=== PATIENT | male | born 1945 | race Caucasian/White ===

== ENCOUNTER → 2016-09-19 | Outpatient (CLI) | payer MEDICARE ==
[~2016-09-19] VITALS: Ht 177.8 cm; Wt 114.8 kg
[~2016-09-19] MED LIST: ASPI1TAB PO; ATOR40TA PO; INSULANT SC; LISI10TA4 PO; METF500T PO; METO-207 PO; NS 1,000 ML IV SCH; PLAV75TA38 PO; PROPOFOL 200 MG/20 ML VIAL As Ordered ONE
--- NOTE | 2016-09-19 11:36 | ROOR ---
Patient Name: Kendrick Ortega Procedure Date: 09/19/2016 10:54 AM Date of : 1945 Age: 71 Room: [facility] Gender: Male Note Status: Finalized Procedure: Colonoscopy to Cecum + Hot/Cold Snare Polypectomy + Hemoclips. Indications: Screening for colorectal malignant neoplasm Providers: Manjeet Martinez MD Referring MD: Issac Rios MD Requesting Provider: Medicines: Monitored Anesthesia Care Complications: No immediate complications. Procedure: Pre-Anesthesia Assessment: - The heart rate, respiratory rate, oxygen saturations, blood pressure, adequacy of pulmonary ventilation, and response to care were monitored throughout the procedure. The Colonoscope was introduced through the anus and advanced to the cecum, identified by appendiceal orifice and ileocecal valve. The colonoscopy was performed without difficulty. The patient tolerated the procedure well. The quality of the bowel preparation was excellent. Findings: The perianal and digital rectal examinations were normal. Non-bleeding internal hemorrhoids were found during retroflexion. The hemorrhoids were small and Grade I (internal hemorrhoids that do not prolapse). Scattered small-mouthed diverticula were found in the recto-sigmoid colon, in the sigmoid colon and in the descending colon. A medium polyp was found at 30 cm proximal to the anus. The polyp was sessile. The polyp was removed with a cold snare. Resection and retrieval were complete. To prevent bleeding after the polypectomy, one hemostatic clip was successfully placed (MR conditional). There was no bleeding at the end of the procedure. A medium polyp was found at 10 cm proximal to the anus. The polyp was sessile. The polyp was removed with a hot snare. Resection and retrieval were complete. To prevent bleeding after the polypectomy, one hemostatic clip was successfully placed (MR conditional). There was no bleeding at the end of the procedure. Two sessile polyps were found in the rectum. The polyps were large in size. These polyps were removed with a hot snare. Resection and retrieval were complete. To prevent bleeding after the polypectomy, three hemostatic clips were successfully placed (MR conditional). There was no bleeding at the end of the procedure. The exam was otherwise without abnormality on direct and retroflexion views. Impression: - Non-bleeding internal hemorrhoids. - Diverticulosis in the recto-sigmoid colon, in the sigmoid colon and in the descending colon. - One medium polyp at 30 cm proximal to the anus, removed with a cold snare. Resected and retrieved. Clip (MR conditional) was placed. - One medium polyp at 10 cm proximal to the anus, removed with a hot snare. Resected and retrieved. Clip (MR conditional) was placed. - Two large polyps in the rectum, removed with a hot snare. Resected and retrieved. Clips (MR conditional) were placed. - The examination was otherwise normal on direct and retroflexion views. - The exam was otherwise normal to the cecum. Recommendation: - Patient has a contact number available for emergencies. The signs and symptoms of potential delayed complications were discussed with the patient. Return to normal activities tomorrow. Written discharge instructions were provided to the patient. - High fiber diet. - Discharge patient to home. - Continue present medications. - Await pathology results. - Telephone GI clinic for pathology results in 1 week. - Repeat colonoscopy date to be determined after pending pathology results are reviewed for surveillance. - Return to referring physician. - The findings and recommendations were discussed with the patient's family. - Resume Plavix (clopidogrel) at prior dose today. Manjeet Martinez MD Manjeet Martinez MD 09/19/2016 11:35:58 AM This report has been signed electronically. Number of Addenda: 0 Note Initiated On: 09/19/2016 10:54 AM Estimated Blood Loss: Estimated blood loss: none.
[2016-09-19 12:14] VITALS: BP 162/99
== END ==
LOC: M OPP 09:16
PROVIDERS: ATTEND Internal Medicine Gastroenterology
DX: Z12.11 Encounter for screening for malignant neoplasm of colon (principal); K64.0 First degree hemorrhoids; K57.30 Diverticulosis of large intestine without perforation or abscess without bleeding; D12.6 Benign neoplasm of colon, unspecified; K62.1 Rectal polyp; Z79.899 Other long term (current) drug therapy

== ENCOUNTER → 2016-11-22 | Outpatient (REF) | payer MEDICARE ==
[~2016-11-22] MED LIST changes: -NS 1,000 ML IV SCH; -PROPOFOL 200 MG/20 ML VIAL As Ordered ONE
[2016-11-22 10:45] LABS: MEAN CORPUSCULAR HEMOGLOBIN 29.5 pg (27.0-33.0); MEAN CORPUSCULAR HGB CONC 33.7 g/dl (32.0-36.5); MEAN CORPUSCULAR VOLUME 87.6 fl (80.0-96.0); RED CELL DISTRIBUTION WIDTH 13.8 % (11.5-14.5); WHITE BLOOD COUNT 6.9 K/mm3 (4.0-10.0)
[2016-11-22 10:55] LABS: ALBUMIN 3.9 GM/DL (3.2-5.2); ALBUMIN/GLOBULIN RATIO 1.39 (1.00-1.93); BILIRUBIN,TOTAL 0.3 MG/DL (0.2-1.0); CALCIUM LEVEL 8.8 MG/DL (8.8-10.2); CREATININE FOR GFR 1.46 MG/DL (0.70-1.30); GLOMERULAR FILTRATION RATE 50.8 (>42); POTASSIUM SERUM 4.6 MEQ/L (3.5-5.1); TOTAL PROTEIN 6.7 GM/DL (6.4-8.2)
== END ==
LOC: M SFHCPLAZ 08:01
PROVIDERS: ATTEND Family Medicine
DX: N18.2 Chronic kidney disease, stage 2 (mild) (principal); E78.2 Mixed hyperlipidemia; E13.9 Other specified diabetes mellitus without complications; Z12.5 Encounter for screening for malignant neoplasm of prostate
CPT/HCPCS: 36415; 80053; 80061; 83036; 85027; G0103

== ENCOUNTER → 2017-05-22 | Outpatient (REF) | payer MEDICARE ==
[~2017-05-22] MED LIST changes: -ATOR40TA PO; +ATOR40TA75 PO; -METF500T PO; +METF500T13 PO; -METO-207 PO; +METO1TAB7 PO; +PLAV1TAB2 PO; -PLAV75TA38 PO
[2017-05-22 13:40] LABS: CALCIUM LEVEL 9.3 MG/DL (8.8-10.2); CREATININE FOR GFR 1.68 MG/DL (0.70-1.30); GLOMERULAR FILTRATION RATE 43.2 (>42); POTASSIUM SERUM 4.4 MEQ/L (3.5-5.1)
== END ==
LOC: M SFHCPLAZ 09:15
PROVIDERS: ATTEND Family Medicine
DX: Z00.00 Encounter for general adult medical examination without abnormal findings (principal); Z12.5 Encounter for screening for malignant neoplasm of prostate; E13.9 Other specified diabetes mellitus without complications

== ENCOUNTER → 2017-11-27 | Outpatient (REF) | payer MEDICARE ==
[2017-11-27 12:37] LABS: HEMATOCRIT 42.1 % (42.0-52.0); HEMOGLOBIN 13.6 g/dl (14.0-18.0); MEAN CORPUSCULAR HEMOGLOBIN 28.5 pg (27.0-33.0); MEAN CORPUSCULAR HGB CONC 32.3 g/dl (32.0-36.5); MEAN CORPUSCULAR VOLUME 88.3 fl (80.0-96.0); PLATELET COUNT, AUTOMATED 236 10^3/uL (150-450); RED BLOOD COUNT 4.77 10^6/uL (4.30-6.10); RED CELL DISTRIBUTION WIDTH 14.7 % (11.5-14.5); WHITE BLOOD COUNT 9.1 10^3/uL (4.0-10.0)
[2017-11-27 12:47] LABS: ALBUMIN/GLOBULIN RATIO 1.38 (1.00-1.93); ALKALINE PHOSPHATASE 98 U/L (45-117); ALT/SGPT 31 U/L (12-78); ANION GAP 5 MEQ/L (8-16); AST/SGOT 20 U/L (7-37); BILIRUBIN,TOTAL 0.4 MG/DL (0.2-1.0); BLOOD UREA NITROGEN 23 MG/DL (7-18); CALCIUM LEVEL 8.8 MG/DL (8.8-10.2); CARBON DIOXIDE LEVEL 27 MEQ/L (21-32); CHLORIDE LEVEL 110 MEQ/L (98-107); CHOLESTEROL LEVEL 109 MG/DL (<200); CHOLESTEROL RISK RATIO 3.114 (<5); GLOMERULAR FILTRATION RATE 53.2 (>42); GLUCOSE, FASTING 112 MG/DL (70-100); HDL CHOLESTEROL 35 MG/DL (>40); NON-HDL-C 74 MG/DL; POTASSIUM SERUM 4.6 MEQ/L (3.5-5.1); SODIUM LEVEL 142 MEQ/L (136-145); TOTAL PROTEIN 6.9 GM/DL (6.4-8.2); TRIGLYCERIDES LEVEL 417 MG/DL (<150)
[2017-11-27 12:53] LABS: TOTAL 25(OH) VITAMIN D 28.7 NG/ML (30.0-100.0)
== END ==
LOC: M SFHCADAM 07:39
DX: I25.10 Atherosclerotic heart disease of native coronary artery without angina pectoris (principal); E78.2 Mixed hyperlipidemia; N18.3 Chronic kidney disease, stage 3 (moderate)
CPT/HCPCS: 80053

== ENCOUNTER 2018-05-03 08:02 | Day surgery (SDC) | payer MEDICARE ==
[2018-05-03 08:52] LABS: BEDSIDE GLUCOSE 133 MG/DL (83-110)
[2018-05-03] MEDS: PHENYLEPHRINE 2.5% OPHTH SOL 2ML OD (08:54)
[2018-05-03] MEDS: PROPARACAINE 0.5% OPHTH SOL 15ML OD (08:54)
[2018-05-03] MEDS: TROPICAMIDE 1% OPHTH SOLN 2ML OD (08:54)
[2018-05-03] MEDS: OFLOXACIN 0.3 % (OCUFLOX) OPTH SOL 5ML OD (08:54)
[2018-05-03] MEDS ORDERED: fentaNYL 100 MCG/2 ML INJECTION (J3010) As Ordered (09:01)
[2018-05-03] MEDS ORDERED: MIDAZOLAM INJ 2 MG/2 ML VIAL (J2250) As Ordered (09:02)
[2018-05-03] MEDS ORDERED: ONDANSETRON 4MG/2ML VIAL (J2405) As Ordered (09:02)
[2018-05-03] MEDS: BALANCED SALT IRRIGATION SOLUTION 500ML BAG (FOR OR EYE MACHINE) As Ordered (10:22)
[2018-05-03] MEDS: DUOVISC (0.50ML VISCOAT/0.55ML PROVISC) OPHTH KIT As Ordered (10:22)
[2018-05-03] MEDS: LIDOCAINE 0.75%/EPINEPHRINE 0.025% IN BSS 1ML SYR INTRACAMERAL (OR ONLY) As Ordered (10:22)
[2018-05-03] MEDS: CEFUROXIME 1MG/0.1ML INTRACAMERAL INJ As Ordered (10:22)
[2018-05-03] MEDS: POVIDONE-IODINE 5% OPHTH PREP SOL 30ML As Ordered (10:22)
== END 2018-05-03 11:30 | disposition home or self-care (01) ==
LOC: M SDC 08:02
DX: H25.11 Age-related nuclear cataract, right eye (principal); I25.10 Atherosclerotic heart disease of native coronary artery without angina pectoris; Z86.73 Personal history of transient ischemic attack (TIA), and cerebral infarction without residual deficits; E78.5 Hyperlipidemia, unspecified; Z79.82 Long term (current) use of aspirin; I25.2 Old myocardial infarction; I10 Essential (primary) hypertension; E11.9 Type 2 diabetes mellitus without complications; Z79.4 Long term (current) use of insulin; Z79.02 Long term (current) use of antithrombotics/antiplatelets; Z79.899 Other long term (current) drug therapy
CPT/HCPCS: 66984

== ENCOUNTER 2018-05-10 08:18 | Day surgery (SDC) | payer MEDICARE ==
[2018-05-10] MEDS: OFLOXACIN 0.3 % (OCUFLOX) OPTH SOL 5ML OS (09:30)
[2018-05-10] MEDS: TROPICAMIDE 1% OPHTH SOLN 2ML OS (09:31)
[2018-05-10] MEDS: PROPARACAINE 0.5% OPHTH SOL 15ML OS (09:31)
[2018-05-10] MEDS: PHENYLEPHRINE 2.5% OPHTH SOL 2ML OS (09:31)
[2018-05-10 09:34] LABS: BEDSIDE GLUCOSE 99 MG/DL (83-110)
[2018-05-10] MEDS: POVIDONE-IODINE 5% OPHTH PREP SOL 30ML As Ordered (11:26)
[2018-05-10] MEDS: DUOVISC (0.50ML VISCOAT/0.55ML PROVISC) OPHTH KIT As Ordered (11:31)
[2018-05-10] MEDS: BALANCED SALT IRRIGATION SOLUTION 500ML BAG (FOR OR EYE MACHINE) As Ordered (11:31)
[2018-05-10] MEDS: CEFUROXIME 1MG/0.1ML INTRACAMERAL INJ As Ordered (11:32)
[2018-05-10] MEDS: LIDOCAINE 0.75%/EPINEPHRINE 0.025% IN BSS 1ML SYR INTRACAMERAL (OR ONLY) As Ordered (11:32)
[2018-05-10] MEDS ORDERED: fentaNYL 100 MCG/2 ML INJECTION (J3010) As Ordered (11:38)
[2018-05-10] MEDS ORDERED: MIDAZOLAM INJ 2 MG/2 ML VIAL (J2250) As Ordered (11:39)
== END 2018-05-10 12:20 | disposition home or self-care (01) ==
LOC: M SDC 12:20
DX: H25.12 Age-related nuclear cataract, left eye (principal); I10 Essential (primary) hypertension; E78.5 Hyperlipidemia, unspecified; E11.9 Type 2 diabetes mellitus without complications; I25.10 Atherosclerotic heart disease of native coronary artery without angina pectoris; I25.2 Old myocardial infarction; Z95.1 Presence of aortocoronary bypass graft; Z98.61 Coronary angioplasty status; Z79.82 Long term (current) use of aspirin; Z79.4 Long term (current) use of insulin; Z79.899 Other long term (current) drug therapy; Z79.02 Long term (current) use of antithrombotics/antiplatelets
CPT/HCPCS: 66984

== ENCOUNTER → 2018-05-28 | Outpatient (REF) | payer MEDICARE ==
[2018-05-28 13:04] LABS: HEMATOCRIT 40.3 % (42.0-52.0); HEMOGLOBIN 13.3 g/dl (13.5-17.5); MEAN CORPUSCULAR HEMOGLOBIN 29.7 pg (27.0-33.0); PLATELET COUNT, AUTOMATED 231 10^3/uL (150-450); RED BLOOD COUNT 4.48 10^6/uL (4.30-6.10); RED CELL DISTRIBUTION WIDTH 13.2 % (11.5-14.5); WHITE BLOOD COUNT 6.7 10^3/uL (4.0-10.0)
[2018-05-28 13:35] LABS: ALBUMIN 3.9 GM/DL (3.2-5.2); ALKALINE PHOSPHATASE 72 U/L (45-117); ALT/SGPT 29 U/L (12-78); ANION GAP 7 MEQ/L (8-16); AST/SGOT 20 U/L (7-37); BILIRUBIN,TOTAL 0.4 MG/DL (0.2-1.0); BLOOD UREA NITROGEN 20 MG/DL (7-18); CALCIUM LEVEL 9.1 MG/DL (8.8-10.2); CARBON DIOXIDE LEVEL 27 MEQ/L (21-32); CHLORIDE LEVEL 109 MEQ/L (98-107); CHOLESTEROL LEVEL 110 MG/DL (<200); CREATININE FOR GFR 1.43 MG/DL (0.70-1.30); GLOMERULAR FILTRATION RATE 51.9 (>42); GLUCOSE, FASTING 108 MG/DL (70-100); HDL CHOLESTEROL 40 MG/DL (>40); LDL CHOLESTEROL 28 MG/DL (<100); NON-HDL-C 70 MG/DL; POTASSIUM SERUM 4.6 MEQ/L (3.5-5.1); SODIUM LEVEL 143 MEQ/L (136-145); TOTAL PROTEIN 6.9 GM/DL (6.4-8.2); TRIGLYCERIDES LEVEL 209 MG/DL (<150)
[2018-05-28 14:05] LABS: MAU/CREAT RATIO 18.7 MCG/MG (0.0-30.0)
[2018-05-28 14:31] LABS: ESTIMATED AVERAGE GLUCOSE 166 MG/DL (60-110); HEMOGLOBIN A1c 7.4 %
== END ==
LOC: M SFHCADAM 08:07
DX: N18.3 Chronic kidney disease, stage 3 (moderate) (principal); E13.9 Other specified diabetes mellitus without complications; E78.2 Mixed hyperlipidemia
CPT/HCPCS: 80053

== ENCOUNTER → 2018-11-28 | Outpatient (REF) | payer MEDICARE ==
[~2018-11-28] MED LIST changes: +VITA200016 PO
[2018-11-28 13:01] LABS: CALCIUM LEVEL 9.1 MG/DL (8.8-10.2); CREATININE FOR GFR 1.96 MG/DL (0.70-1.30); POTASSIUM SERUM 4.8 MEQ/L (3.5-5.1)
[2018-11-28 13:27] LABS: HEMOGLOBIN A1c 7.3 %
== END ==
LOC: M SFHCADAM 08:42
PROVIDERS: ATTEND Family Medicine
DX: E13.9 Other specified diabetes mellitus without complications (principal)

== ENCOUNTER → 2019-06-24 | Outpatient (REF) | payer MEDICARE ==
[~2019-06-24] MED LIST changes: -ASPI1TAB PO; +ASPI81TA26 PO
[2019-06-24 13:19] LABS: HEMATOCRIT 41.3 % (42.0-52.0); HEMOGLOBIN 13.4 g/dl (13.5-17.5); MEAN CORPUSCULAR HEMOGLOBIN 29.5 pg (27.0-33.0); MEAN CORPUSCULAR HGB CONC 32.4 g/dl (32.0-36.5); PLATELET COUNT, AUTOMATED 255 10^3/uL (150-450); RED BLOOD COUNT 4.54 10^6/uL (4.30-6.10); WHITE BLOOD COUNT 8.8 10^3/uL (4.0-10.0)
[2019-06-24 13:29] LABS: ALBUMIN 4.1 GM/DL (3.2-5.2); BILIRUBIN,TOTAL 0.5 MG/DL (0.2-1.0); CALCIUM LEVEL 9.4 MG/DL (8.8-10.2); CHOLESTEROL RISK RATIO 2.704 (<5); CREATININE FOR GFR 1.68 MG/DL (0.70-1.30); POTASSIUM SERUM 4.3 MEQ/L (3.5-5.1); TOTAL PROTEIN 7.3 GM/DL (6.4-8.2)
[2019-06-24 13:42] LABS: HEMOGLOBIN A1c 6.8 %
[2019-06-24 14:01] LABS: MAU/CREAT RATIO 15.1 MCG/MG (0.0-30.0)
== END ==
LOC: M SFHCADAM 08:30
PROVIDERS: ATTEND Family Medicine
DX: I25.10 Atherosclerotic heart disease of native coronary artery without angina pectoris (principal); N18.3 Chronic kidney disease, stage 3 (moderate); E13.9 Other specified diabetes mellitus without complications; E78.2 Mixed hyperlipidemia; Z12.5 Encounter for screening for malignant neoplasm of prostate
CPT/HCPCS: 80053; 80061; 82043; 83036; 85027; G0103

== ENCOUNTER → 2019-11-15 | Outpatient (REF) | payer MEDICARE ==
[2019-11-15 13:19] LABS: CALCIUM LEVEL 8.9 MG/DL (8.8-10.2); CREATININE FOR GFR 1.44 MG/DL (0.70-1.30); GLOMERULAR FILTRATION RATE 51.2 (>42); POTASSIUM SERUM 4.6 MEQ/L (3.5-5.1)
[2019-11-15 13:21] LABS: HEMOGLOBIN A1c 7.6 %
== END ==
LOC: M SFHCADAM 09:00
PROVIDERS: ATTEND Family Medicine
DX: E13.9 Other specified diabetes mellitus without complications (principal)

== ENCOUNTER → 2021-01-18 | Outpatient (REF) | payer MEDICARE ==
[~2021-01-18] MED LIST changes: +LISI10TA22 PO; -LISI10TA4 PO
[2021-01-18 12:36] LABS: HEMATOCRIT 42.4 % (42.0-52.0); HEMOGLOBIN 13.9 g/dl (13.5-17.5); MEAN CORPUSCULAR HEMOGLOBIN 30.1 pg (27.0-33.0); MEAN CORPUSCULAR HGB CONC 32.8 g/dl (32.0-36.5); MEAN CORPUSCULAR VOLUME 91.8 fl (80.0-96.0); PLATELET COUNT, AUTOMATED 202 10^3/uL (150-450); RED BLOOD COUNT 4.62 10^6/uL (4.30-6.10); WHITE BLOOD COUNT 7.2 10^3/uL (4.0-10.0)
[2021-01-18 13:07] LABS: BILIRUBIN,TOTAL 0.4 MG/DL (0.2-1.0); CHOLESTEROL RISK RATIO 2.976 (<5); CREATININE FOR GFR 2.66 MG/DL (0.70-1.30); GLOMERULAR FILTRATION RATE 25.1 (>42); POTASSIUM SERUM 4.8 MEQ/L (3.5-5.1); TOTAL PROTEIN 6.8 GM/DL (6.4-8.2)
[2021-01-18 13:42] LABS: HEMOGLOBIN A1c 6.3 %
== END ==
LOC: M SFHCADAM 07:45
PROVIDERS: ATTEND Family Medicine
DX: N18.30 Chronic kidney disease, stage 3 unspecified (principal); E13.9 Other specified diabetes mellitus without complications; E78.2 Mixed hyperlipidemia; Z12.5 Encounter for screening for malignant neoplasm of prostate
CPT/HCPCS: 80053; 80061; 83036; 85027; G0103

== ENCOUNTER → 2021-01-25 | Outpatient (REF) | payer MEDICARE ==
[2021-01-25 12:40] LABS: APPEARANCE, URINE HAZY (CLEAR); BACTERIA, URINE AUTO 1+ (NEGATIVE); BILIRUBIN, URINE AUTO NEGATIVE (NEGATIVE); BLOOD, URINE BLOOD NEGATIVE (NEGATIVE); COLOR, URINE YELLOW (YELLOW); GLUCOSE, URINE (UA) AUTO NEGATIVE (NEGATIVE); KETONE, URINE AUTO NEGATIVE (NEGATIVE); LEUKOCYTE ESTERASE, URINE AUTO NEGATIVE (NEGATIVE); NITRITE, URINE AUTO NEGATIVE (NEGATIVE); PROTEIN, URINE AUTO NEGATIVE (NEGATIVE); RBC, URINE AUTO 0 /HPF (0-3); SPECIFIC GRAVITY URINE AUTO 1.018 (1.002-1.035); SQUAMOUS EPITHELIAL CELL UR AU 0 /HPF (0-6); UROBILINOGEN, URINE AUTO 0.2 mg/dL (0.0-2.0); WBC, URINE AUTO 0 /HPF (0-3)
[2021-01-25 13:22] LABS: MALB URINE SIEMENS 22.8 MG/L; MAU/CREAT RATIO 13.2 MCG/MG (0.0-30.0)
== END ==
LOC: M SFHCADAM 08:43
PROVIDERS: ATTEND Family Medicine
DX: N18.4 Chronic kidney disease, stage 4 (severe) (principal)
CPT/HCPCS: 81001; 82043; G0463

== ENCOUNTER → 2021-02-04 | Outpatient (CLI) | payer MEDICARE ==
--- NOTE | 2021-02-04 12:06 | REP ---
INDICATION: CKD STAGE 4 COMPARISON: None TECHNIQUE: Real time jara scale ultrasound examination using curved array transducer. FINDINGS: The bilateral kidneys are normal in reniform shape and size with increased central sinus fat consistent with chronic medical renal disease. No hydronephrosis, nephrolithiasis, or mass lesion is appreciated. Right kidney measures 11.5 x 5.6 x 5.0 cm with a 6 mm cortical midpole cyst. Left kidney measures 11.7 x 5.8 x 5.2 cm. The bladder is normal and bilateral ureteral jets are identified. IMPRESSION: Findings consistent with chronic medical renal disease. <Electronically signed by Ra Araiza > 02/04/21 [id number]
== END ==
LOC: M RAD 11:36
PROVIDERS: ATTEND Family Medicine
DX: N18.4 Chronic kidney disease, stage 4 (severe) (principal)

== ENCOUNTER → 2021-04-16 | Outpatient (REF) | payer MEDICARE ==
[2021-04-16 13:02] LABS: HEMOGLOBIN A1c 6.9 %
[2021-04-16 13:14] LABS: CALCIUM LEVEL 9.1 MG/DL (8.8-10.2); CREATININE FOR GFR 1.58 MG/DL (0.70-1.30); GLOMERULAR FILTRATION RATE 45.9 (>42); POTASSIUM SERUM 5.2 MEQ/L (3.5-5.1)
== END ==
LOC: M SFHCADAM 09:43
PROVIDERS: ATTEND Family Medicine
DX: E11.22 Type 2 diabetes mellitus with diabetic chronic kidney disease (principal); N18.4 Chronic kidney disease, stage 4 (severe); I11.9 Hypertensive heart disease without heart failure

== ENCOUNTER → 2021-04-16 | Outpatient (REF) | payer MEDICARE ==
[2021-04-16 15:17] LABS: CALCIUM LEVEL 9.1 MG/DL (8.8-10.2); CREATININE FOR GFR 1.58 MG/DL (0.70-1.30); GLOMERULAR FILTRATION RATE 45.9 (>42); POTASSIUM SERUM 5.2 MEQ/L (3.5-5.1)
== END ==
LOC: M LABDRWAD 14:51
PROVIDERS: ATTEND Physician Assistant
DX: I11.9 Hypertensive heart disease without heart failure (principal)

== ENCOUNTER → 2021-04-23 | Outpatient (REF) | payer MEDICARE | LOC: M LABDRWAD 13:00 | PROVIDERS: ATTEND Physician Assistant | DX: E87.5 Hyperkalemia (principal) ==

== ENCOUNTER → 2021-04-23 | Outpatient (REF) | payer MEDICARE | LOC: M SFHCADAM 08:01 | PROVIDERS: ATTEND Family Medicine | DX: E11.22 Type 2 diabetes mellitus with diabetic chronic kidney disease (principal); N18.4 Chronic kidney disease, stage 4 (severe); I25.10 Atherosclerotic heart disease of native coronary artery without angina pectoris; E78.2 Mixed hyperlipidemia ==

== ENCOUNTER → 2021-06-07 | Outpatient (CLI) | payer MEDICARE ==
[~2021-06-07] MED LIST changes: +METO1TAB87 PO; +NITR0.4S14 SL; +TRIA37.53 PO; +ZETI10TA16 PO
== END ==
LOC: M LABSMTC 11:10
PROVIDERS: ATTEND Anesthesiology
DX: Z01.812 Encounter for preprocedural laboratory examination (principal); Z20.822 Contact with and (suspected) exposure to COVID-19

== ENCOUNTER 2021-06-11 14:13 | Day surgery (SDC) | payer MEDICARE ==
[~2021-06-11] VITALS: Ht 180.3 cm; Wt 111.5 kg
[~2021-06-11 14:13] MED LIST changes: +LIDOCAINE 1% MDV 20ML VIAL SQ PRN; +LR 1,000 ML IV ONE; +ceFAZolin SOD 1 GM in D5W MINI-BAG PLUS 50 ML IV ONE
[2021-06-11] MEDS ORDERED: MIDAZOLAM INJ 2MG/2ML VIAL (J2250 PER 1MG) As Ordered ONE (17:48)
[2021-06-11] MEDS ORDERED: LIDOCAINE 2% 100MG/5ML SDV (FOR ANES.) As Ordered ONE (17:48)
[2021-06-11] MEDS ORDERED: dexameTHASONE 4 MG/ML 1ML VIAL (J1100 PER 1MG) As Ordered ONE (17:48)
[2021-06-11] MEDS ORDERED: fentaNYL 100 MCG/2 ML INJECTION (J3010) As Ordered ONE (17:48)
[2021-06-11] MEDS ORDERED: ONDANSETRON 4MG/2ML VIAL As Ordered ONE (17:48)
[2021-06-11] MEDS ORDERED: propofoL 500 MG/50 ML VIAL As Ordered ONE (17:48)
[2021-06-11] MEDS ORDERED: LIDOCAINE 1% SDV 30ML VIAL As Ordered ONE (18:46)
[2021-06-11] MEDS ORDERED: ISOVUE-300 61% 50ML VIAL As Ordered ONE (18:47)
[2021-06-11] MEDS ORDERED: ceFAZolin 1GM VIAL (J0690 PER 500MG) As Ordered ONE (18:50)
[2021-06-11] MEDS ORDERED: propofoL 200 MG/20 ML VIAL As Ordered ONE (19:36)
[2021-06-11] MEDS ORDERED: DEXTROSE 50% 50 ML SYRINGE IV PRN (19:55)
[2021-06-11] MEDS ORDERED: GLUCAGON INJ 1MG VIAL SC PRN (19:55)
[2021-06-11] MEDS ORDERED: NITROGLYCERIN 0.4 MG SUBL TABLET SL PRN (19:55)
[2021-06-11] MEDS ORDERED: GLUCOSE 4GM CHEW TABLET PO PRN (19:55)
--- NOTE | 2021-06-11 20:26 | REP ---
INDICATION: S/P PACEMAKER COMPARISON: 01/16/2008 TECHNIQUE: Portable AP view of the chest FINDINGS: Patient is status post pacemaker placement with leads overlying the right atrium and right ventricle. Evidence for prior sternotomy and CABG also identified. Lung hicks demonstrate poor inspiratory effort which limit evaluation. No focal consolidation, obvious effusion or pneumothorax. IMPRESSION: Status post pacemaker. No obvious consolidation, effusion, or pneumothorax. <Electronically signed by Ra Araiza > 06/11/212022
[2021-06-11 20:45] VITALS: BP 156/87
[2021-06-11] MEDS ORDERED: LEVEMIR (INSULIN DETEMIR) 1 UNITS/0.01ML SC SCH (21:00)
[2021-06-11] MEDS ORDERED: ATORVASTATIN 20 MG TAB PO SCH (21:00)
[2021-06-11] MEDS: METOPROLOL TART 25 MG TABLET PO SCH (21:29)
--- NOTE | 2021-06-11 21:42 | RO ---
OPERATIVE NOTE DATE OF OPERATION: 06/11/2021 PREOPERATIVE DIAGNOSIS: 1. Intermittent high-grade AV block. 2. Abnormal EKG with right bundle branch block. 3. Coronary artery disease - post IWMI post-CABG and PTCA. 4. Hypertensive heart disease (benign without heart failure). POSTOPERATIVE DIAGNOSIS: 1. Intermittent high-grade AV block. 2. Abnormal EKG with right bundle branch block. 3. Coronary artery disease - post IWMI post-CABG and PTCA. 4. Hypertensive heart disease (benign without heart failure). PROCEDURE: Implantation of a permanent dual-chamber pacemaker. IMPLANTING SPANISH MEDICAL INTERPRETER: Murali Eagle M.D. ANESTHESIOLOGIST: Dr. Morgan Sandoval ANESTHESIA: Monitored local anesthesia. 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 He also has had an abnormal EKG showing previously a first degree AV block and right bundle branch block. A Holter monitor was performed on May 14, 2021 showing intermittent high-grade AV block with rates as low as 34 beats per minute versus max rate of 99 beats per minute with average rate 56 BPM. 5.3% of his QRS complexes were PVCs with two nonsustained runs of ventricular tachycardia, the longest at 10 beats, fastest 120 BPM. Other known medical problems include obesity, insulin dependent diabetes mellitus, chronic renal insufficiency and degenerative joint disease. Chemical stress heart scan, November, showed no inducible chest pain or EKG change, at least mildly dilated left ventricle with inferior akinesis consistent with his prior infarction, LVEF 45%. No reversible perfusion defect. At this time, he has been virtually free of cardiovascular complaint. He does walk on a daily basis and plays with his grandchildren. On examination, he is stocky, barrel-chested, mildly overweight, elderly male who lay comfortably. The tele is kept on, 56 BPM and regular with occasional irregularity. Blood pressure 116/68 sitting, respiratory rate 16 per minute, O2 saturation was normal at 96%, BMI 34. No pallor or cyanosis. Trachea was midline. Increased anterior-posterior chest diameter with normal chest expansion. Muscular chest wall. Good air over both lung hicks with no abnormal pulmonary adventitious sounds. Apical impulse is more difficult to palpate. Heart sounds were somewhat distant. No audible gallop or murmur. Normal carotid upstrokes and volume. Soft, ovoid abdomen. No pedal edema. Normal peripheral pulses. EKG showed sinus bradycardia at 56 BPM. LA conduction disturbance. Marked first degree AV block. Right bundle branch block. Isolated PVC. No primary repolarization abnormalities. Blood work: Hemoglobin 12.8 with normal white blood cell count and platelet count. Electrolytes were in balance with potassium 4.8, BUN 26, creatinine 1.7 with estimated glomerular infiltration rate of 39. Random glucose 138. Albumin 4.0. DESCRIPTION OF PROCEDURE: Following informed consent with the patient in the fasting state, having received Ancef 2 gm IV premedication, he was taken to the operating theater. Numerous skin electrodes were applied to facilitate continuous electrocardiographic monitoring. The left subclavian region was prepped and draped in the usual fashion and the skin was infiltrated with 1% Xylocaine. The left axillary vein was catheterized using the micropuncture technique. A 5 cm linear incision was made several cm below and parallel to the left clavicle. Dissection was carried down to the level of the pectoralis fascia and a pocket was fashioned below the level of the incision line. Two bipolar active fixation, steroid-eluting pacing leads were then positioned to the distal right ventricular septum and the high rate atrial appendage under fluoroscopic and electrocardiographic control. The ventricular lead ([employer], model number [id number]/58, serial number [id number]) measurements were focal and stimulation thresholds 0.7 V/0.4 ms/impedance 693 ohms. The R wave measured 6.0 mV. The atrial lead ([employer], model number [id number]/56, serial number [id number]) measurements were focal and stimulation thresholds 1.0 V/0.4 ms/impedance 438 ohms. Initial P wave amplitude measured 1.2 mV but by the time we reached the room, this had increased to 3.0 mV. These leads were secured in position with a sleeve suture at the insertion site. They were then connected to a dual-chamber pulse generator ([employer] compatible, model number [id number], serial number [id number]) and appropriate DDD pacing was documented. His pulse generator was secured in position with a suture through the right upper hand corner of the epoxy header. The subcutaneous tissues were approximated using a running quilting suture and the skin was closed using belle. A dry dressing was applied and the patient was returned to the recovery room in good condition. ESTIMATED BLOOD LOSS: 10 ml COMPLICATIONS: No apparent complications. Postoperative portable upright chest x-ray showed good lead position with no pneumothorax. Postoperative EKG showed underlying sinus rhythm at 75 BPM with atrial sensing and tracking with consistent ventricular pacing. Paced QRS complexes had a normal axis with LBBB configuration. Our plan is to monitor him overnight on telemetry and he will receive an additional three doses of Ancef 1 gm IV q.8h. I anticipate his discharge early tomorrow afternoon. ANDREW
[2021-06-12] VITALS: BP 136/75
[2021-06-12] MEDS ORDERED: ONDANSETRON 4MG/2ML VIAL IV PRN (00:15)
[2021-06-12] MEDS ORDERED: fentaNYL 100 MCG/2 ML INJECTION (J3010) IV PRN (00:15)
[2021-06-12] MEDS ORDERED: LR 1,000 ML IV SCH (00:15)
[2021-06-12] MEDS ORDERED: PERCOCET 5MG/325MG TAB PO PRN (00:15)
[2021-06-12] MEDS: ceFAZolin SOD 1 GM in D5W MINI-BAG PLUS 50 ML IV SCH ×2 (01:24→11:08)
[2021-06-12 04:00] VITALS: BP 135/79
[2021-06-12 08:00] VITALS: BP 138/81
[2021-06-12 08:57] VITALS: BP 138/81
[2021-06-12] MEDS: METOPROLOL TART 25 MG TABLET PO SCH (08:57)
[2021-06-12] MEDS ORDERED: LEVEMIR (INSULIN DETEMIR) 1 UNITS/0.01ML SC SCH (09:00)
[2021-06-12] MEDS ORDERED: FLUBLOK(EGG FREE)(QUAD)INFLUENZA VACC 0.5ML SYRINGE 18YRS & OLDER IM ONE (09:00)
[2021-06-12] MEDS ORDERED: DYAZIDE 37.5/25 CAP (TRIAM/HCTZ) PO SCH (09:00)
[2021-06-12] MEDS ORDERED: ASPIRIN 81 MG CHEW TABLET PO SCH (09:00)
[2021-06-12] MEDS ORDERED: CLOPIDOGREL 75 MG TAB PO SCH (09:00)
[2021-06-12 09:55] LABS: INR 1.01; PROTHROMBIN TIME 13.7 SECONDS (12.7-14.5)
[2021-06-12 09:56] LABS: PARTIAL THROMBOPLASTIN TIME 32.7 SECONDS (25.9-37.0)
--- NOTE | 2021-06-12 11:01 | REP ---
INDICATION: Post pacemaker implant COMPARISON: 06/11/2021 TECHNIQUE: PA and lateral. FINDINGS: Patient is status post pacemaker placement in stable satisfactory position. Evidence for prior sternotomy and CABG are also identified. The lung hicks are clear and without consolidation/contusion, effusion or pneumothorax. Skeletal structures are intact. IMPRESSION: No acute cardiopulmonary process. <Electronically signed by Ra Araiza > 06/12/21 1052
[2021-06-12 12:00] VITALS: BP 135/70
--- NOTE | 2021-06-12 13:10 | IPN ---
PROGRESS NOTE DATE: 06/12/2021 SUBJECTIVE: Patient has been up in the room without dizziness. Has not had any incisional discomfort following his pacemaker implant yesterday. OBJECTIVE: A pleasant, overweight, barrel-chested, ___ male, lying comfortably. Heart rate 60 beats per minute (BPM) and regular, blood pressure 138/81, respiratory rate 16, oxygen saturation 96% on room air. Afebrile. Weight 256 pounds. Height 71 inches. Body mass index (BMI) 34.3. No pallor or cyanosis. Trachea was midline. Neck veins were not elevated. Increased anterior-posterior chest diameter with no chest expansion. His dressing was changed and shows no evidence of discharge, erythema, or abnormal swelling. Good air entry over both lung hicks with no abnormal adventitious sounds. No pericardial rub. ekg monitor tech: This shows appropriate dual-chamber pacer function with mostly atrioventricular (AV) sequentially paced rhythm. Occasional premature ventricular contractions (PVCs), and earlier this morning one 4-beat run slow ventricular tachycardia that was asymptomatic. EKG: Again, this shows consistent AV sequentially paced rhythm with relatively narrow QRS complexes with our current programming of his AV delay. His prior right bundle branch block has resolved. Current QRS duration 104 msec with an incomplete left bundle branch block pattern. His AV delay has been programmed to 350 msec in order to achieve this narrow QRS complex. Chest x-ray: PA and left lateral study was reviewed independently and shows mild cardiomegaly with slightly unfolded thoracic aorta. A dual-chamber pacemaker with pulse generator, left subclavian region, bipolar screw and active fixation leads located in the high right atrial appendage and distal right ventricular septum. No pneumothorax. Pulmonary vasculature was normal. No infiltrate or pleural effusion. No pneumothorax. IMPRESSION/PLAN: 1. Intermittent high-grade AV block/status post dual-chamber pacemaker implant: It appears to be healing very well at this point. Has been up in the room without any lightheadedness or dizziness. ekg monitor tech shows appropriate pacemaker function. Complete pacemaker interrogation was performed today, showing excellent intracardiac electrograms with atrial activity measuring 2.5 mV and ventricular activity 10.6 mV. Pacing thresholds showed in the atrium 0.375 V/0.5 ms, and in the ventricle 0.5 V/0.4 ms. His flow rate has been left at 60 BPM, max tracking at 110 with paced AV delay 350 msec, sensed AV delay 325 msec. Estimated battery longevity 9.7 years. 2. Abnormal EKG/right bundle branch block: With our current programming, his QRS complex is actually narrow. We are hoping this will facilitate preserved left ventricular systolic function and avoid paradoxical septal motion. 3. PVCs: He is known to have frequent isolated PVCs that continue asymptomatic at this point. No special measures would be deemed necessary beyond his current beta magdalena therapy. 4. Inferior wall myocardial infarction/post coronary artery bypass graft (CABG)/post percutaneous transluminal coronary angioplasty (PTCA): On his current level of activity, has remained free of any chest discomfort. His EKG shows actually less repolarization abnormality with his narrow QRS complex but ongoing small inferior Q waves consistent with his prior infarction. He will remain on combination protective medical therapy. 5. Hypertensive heart disease (benign without heart failure). Remains free of any symptom or sign of congestion. His chest x-ray again confirms cardiomegaly with no pulmonary venous congestion or edema. DISCHARGE MEDICATIONS AND RECOMMENDATIONS: He will resume his no added salt diabetic diet and has been requested to perform activity as tolerated but light activity with his left arm until his belle are removed in our office in 7-10 days' time. My office will be calling him June 15 with that appointment. We have also requested that he avoid getting his incision wet and promptly report any abnormal erythema, swelling, or discharge. His medications will resume: Metoprolol tartrate 25 mg twice a day, atorvastatin 40 mg daily, aspirin 81 mg daily, Plavix 75 mg daily, triamterene/ hydrochlorothiazide 37.5-25 one tablet daily, nitroglycerin 0.4 mg sublingual (SL) every 5 minutes as needed for angina. His insulin will resume, Lantus 95 units subcutaneous twice a day.
--- NOTE | 2021-06-14 18:55 | ECGEPIP ---
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
--- NOTE | 2021-06-14 18:55 | ECGEPIP ---
[facility] Test Date: 2021-06-11 Pat Name: SIMBA CHATTERJEE Department: Room: [place] [address] Gender: Male Muskrat Trapper: jessika : 1945 Requested By: Murali Eagle Order Number: [id number] Reading MD: Clark Shirley Measurements Intervals [place] Rate: 75 P: [place]: QRS: 44 QRSD: 146 T: -36 QT: 450 QTc: 502 Interpretive Statements A-V and V-paced rhythm with occasional premature ventricular complexes Comparison tracing not on file Electronically Signed on 06-14-2021 18:54:53 EDT by Clark Shirley
== END 2021-06-12 13:45 | disposition home or self-care (01) ==
LOC: M SDC 14:13 → M PCU 20:41 → M SDC 06-12 13:45
PROVIDERS: ATTEND Internal Medicine Cardiovascular Disease
DX: I44.2 Atrioventricular block, complete (principal); R94.31 Abnormal electrocardiogram [ECG] [EKG]; I25.10 Atherosclerotic heart disease of native coronary artery without angina pectoris; I25.2 Old myocardial infarction; Z95.1 Presence of aortocoronary bypass graft; Z95.5 Presence of coronary angioplasty implant and graft; I49.3 Ventricular premature depolarization; I11.9 Hypertensive heart disease without heart failure; I45.10 Unspecified right bundle-branch block; E78.2 Mixed hyperlipidemia; E66.8 Other obesity; Z68.34 Body mass index [BMI] 34.0-34.9, adult; M19.90 Unspecified osteoarthritis, unspecified site; R06.02 Shortness of breath; R06.83 Snoring; Z88.8 Allergy status to other drugs, medicaments and biological substances; Z79.899 Other long term (current) drug therapy; Z79.82 Long term (current) use of aspirin; Z79.4 Long term (current) use of insulin; Z79.02 Long term (current) use of antithrombotics/antiplatelets
CPT/HCPCS: 33208; 36415; 71045; 71046; 76000; 85610; 85730; 90682; 93005; C1785; C1898; G0008; J0690; J1100; J2250; J2405; J3010

== ENCOUNTER → 2021-11-12 | Outpatient (REF) | payer MEDICARE ==
[~2021-11-12] MED LIST changes: -LIDOCAINE 1% MDV 20ML VIAL SQ PRN; -LR 1,000 ML IV ONE; -ceFAZolin SOD 1 GM in D5W MINI-BAG PLUS 50 ML IV ONE
[2021-11-12 12:55] LABS: HEMATOCRIT 46.1 % (42.0-52.0); MEAN CORPUSCULAR HEMOGLOBIN 28.5 pg (27.0-33.0); MEAN CORPUSCULAR HGB CONC 32.5 g/dl (32.0-36.5); MEAN CORPUSCULAR VOLUME 87.5 fl (80.0-96.0); PLATELET COUNT, AUTOMATED 215 10^3/uL (150-450); RED BLOOD COUNT 5.27 10^6/uL (4.30-6.10); WHITE BLOOD COUNT 6.6 10^3/uL (4.0-10.0)
[2021-11-12 13:28] LABS: BILIRUBIN,TOTAL 0.5 MG/DL (0.2-1.0); CHOLESTEROL RISK RATIO 2.476 (<5); CREATININE FOR GFR 1.79 MG/DL (0.70-1.30); GLOMERULAR FILTRATION RATE 39.6 (>42); POTASSIUM SERUM 4.1 MEQ/L (3.5-5.1); TOTAL PROTEIN 6.9 GM/DL (6.4-8.2)
[2021-11-12 14:27] LABS: HEMOGLOBIN A1c 7.7 %
== END ==
LOC: M SFHCADAM 12:37
PROVIDERS: ATTEND Family Medicine
DX: N18.4 Chronic kidney disease, stage 4 (severe) (principal); E11.22 Type 2 diabetes mellitus with diabetic chronic kidney disease; I25.10 Atherosclerotic heart disease of native coronary artery without angina pectoris; E78.2 Mixed hyperlipidemia

== ENCOUNTER → 2022-03-11 | Outpatient (REF) | payer MEDICARE ==
[~2022-03-11] MED LIST changes: -TRIA37.53 PO; +TRIA37.577 PO
[2022-03-11 17:44] LABS: CALCIUM LEVEL 9.4 MG/DL (8.8-10.2); CREATININE FOR GFR 1.96 MG/DL (0.70-1.30); GLOMERULAR FILTRATION RATE 35.7 (>42); POTASSIUM SERUM 4.5 MEQ/L (3.5-5.1)
[2022-03-11 17:59] LABS: HEMOGLOBIN A1c 7.9 %
== END ==
LOC: M SFHCADAM 15:40
PROVIDERS: ATTEND Family Medicine
DX: E11.22 Type 2 diabetes mellitus with diabetic chronic kidney disease (principal)

== ENCOUNTER → 2022-06-03 | Outpatient (CLI) | payer MEDICARE | LOC: M ADAMS 10:33 | PROVIDERS: ATTEND Physician Assistant | DX: L03.116 Cellulitis of left lower limb (principal); S91.102D Unspecified open wound of left great toe without damage to nail, subsequent encounter; W18.30XD Fall on same level, unspecified, subsequent encounter ==

== ENCOUNTER → 2022-06-03 | Outpatient (REF) | payer MEDICARE ==
[2022-06-03 13:18] LABS: BASO % 0.4 % (0.0-1.0); EOS # 0.3 10^3/uL (0.0-0.5); EOS % 3.6 % (0.0-3.0); HEMATOCRIT 47.5 % (42.0-52.0); HEMOGLOBIN 15.1 g/dl (13.5-17.5); LYMPH # 1.1 10^3/uL (1.5-5.0); MEAN CORPUSCULAR HGB CONC 31.8 g/dl (32.0-36.5); MEAN CORPUSCULAR VOLUME 91.2 fl (80.0-96.0); MONO # 0.7 10^3/uL (0.0-0.8); MONO % 9.1 % (2.0-8.0); NEUTROPHILS # 5.1 10^3/uL (1.5-8.5); NEUTROPHILS % 71.5 % (36.0-66.0); PLATELET COUNT, AUTOMATED 200 10^3/uL (150-450); RED BLOOD COUNT 5.21 10^6/uL (4.30-6.10); WHITE BLOOD COUNT 7.1 10^3/uL (4.0-10.0)
== END ==
LOC: M SFHCADAM 09:43
PROVIDERS: ATTEND Physician Assistant
DX: L03.116 Cellulitis of left lower limb (principal); S91.102D Unspecified open wound of left great toe without damage to nail, subsequent encounter

== ENCOUNTER → 2022-07-13 | Outpatient (CLI) | payer MEDICARE ==
[~2022-07-13] MED LIST changes: +CLOP75TA99 PO; -PLAV1TAB2 PO
== END ==
LOC: M RAD 08:43
PROVIDERS: ATTEND Nurse Practitioner Family
DX: I70.1 Atherosclerosis of renal artery (principal)

== ENCOUNTER → 2022-09-09 | Outpatient (REF) | payer MEDICARE ==
[2022-09-09 12:56] LABS: HEMATOCRIT 44.6 % (42.0-52.0); HEMOGLOBIN 14.3 g/dl (13.5-17.5); MEAN CORPUSCULAR HEMOGLOBIN 29.2 pg (27.0-33.0); MEAN CORPUSCULAR HGB CONC 32.1 g/dl (32.0-36.5); PLATELET COUNT, AUTOMATED 182 10^3/uL (150-450); WHITE BLOOD COUNT 5.6 10^3/uL (4.0-10.0)
[2022-09-09 13:07] LABS: HEMOGLOBIN A1c 7.1 % (4.0-6.0)
[2022-09-09 13:29] LABS: ALBUMIN 4.2 G/DL (3.2-5.2); BILIRUBIN,TOTAL 0.5 MG/DL (0.3-1.2); CHOLESTEROL RISK RATIO 2.25 (<5); CREATININE FOR GFR 1.74 MG/DL (0.70-1.30); GLOMERULAR FILTRATION RATE 40.8 (>42); HDL CHOLESTEROL 37.2 MG/DL (>40); POTASSIUM SERUM 4.6 MMOL/L (3.5-5.1); TOTAL PROTEIN 6.6 G/DL (5.7-8.2)
== END ==
LOC: M SFHCADAM 09:43
PROVIDERS: ATTEND Family Medicine
DX: E11.22 Type 2 diabetes mellitus with diabetic chronic kidney disease (principal); N18.4 Chronic kidney disease, stage 4 (severe); I25.10 Atherosclerotic heart disease of native coronary artery without angina pectoris; E78.2 Mixed hyperlipidemia; Z12.5 Encounter for screening for malignant neoplasm of prostate
CPT/HCPCS: 80053; 80061; 83036; 85027; G0103

== ENCOUNTER → 2023-09-08 | Outpatient (REF) | payer MEDICARE ==
[~2023-09-08] MED LIST changes: +EZET10TA58 PO; -ZETI10TA16 PO
[2023-09-08 13:39] LABS: HEMATOCRIT 46.2 % (42.0-52.0); HEMOGLOBIN 14.8 g/dl (13.5-17.5); MEAN CORPUSCULAR HEMOGLOBIN 28.5 pg (27.0-33.0); MEAN CORPUSCULAR VOLUME 88.8 fl (80.0-96.0); PLATELET COUNT, AUTOMATED 193 10^3/uL (150-450); WHITE BLOOD COUNT 6.6 10^3/uL (4.0-10.0)
[2023-09-08 13:48] LABS: HEMOGLOBIN A1c 7.7 % (4.0-6.0)
[2023-09-08 14:02] LABS: MAU/CREAT RATIO 10.8 MCG/MG (0.0-30.0)
[2023-09-08 14:04] LABS: ALBUMIN 3.9 G/DL (3.2-5.2); BILIRUBIN,TOTAL 0.5 MG/DL (0.3-1.2); CALCIUM LEVEL 9.1 MG/DL (8.3-10.6); CHOLESTEROL RISK RATIO 2.59 (<5); CREATININE FOR GFR 1.6 MG/DL (0.70-1.30); GLOMERULAR FILTRATION RATE 44.8 (>42); HDL CHOLESTEROL 37.4 MG/DL (>40); NON-HDL-C 59.6 MG/DL; POTASSIUM SERUM 4.5 MMOL/L (3.5-5.1); TOTAL PROTEIN 6.4 G/DL (5.7-8.2)
== END ==
LOC: M SFHCADAM 10:22
PROVIDERS: ATTEND Family Medicine
DX: E78.2 Mixed hyperlipidemia (principal); E13.9 Other specified diabetes mellitus without complications; I25.10 Atherosclerotic heart disease of native coronary artery without angina pectoris; I10 Essential (primary) hypertension

== ENCOUNTER → 2023-10-13 | Outpatient (REF) | payer MEDICARE ==
[2023-10-13 13:06] LABS: CALCIUM LEVEL 9.1 MG/DL (8.3-10.6); CREATININE FOR GFR 1.63 MG/DL (0.70-1.30); GLOMERULAR FILTRATION RATE 43.9 (>42)
[2023-10-13 13:12] LABS: HEMOGLOBIN A1c 8.2 % (4.0-6.0)
== END ==
LOC: M SFHCADAM 08:21
PROVIDERS: ATTEND Family Medicine
DX: E13.9 Other specified diabetes mellitus without complications (principal)